=== PATIENT | male | born 1945 | race Hispanic/Latino ===

== ENCOUNTER 2019-09-03 07:42 | Outpatient (CLI) | payer OTHER, MEDICARE, SELFPAY ==
--- NOTE | 2019-09-03 07:48 | ECG_ITS ---
Measurements Intervals [place] Rate: 62 P: 58 NE: 230 QRS: -47 QRSD: 142 T: -21 QT: 418 QTc: 426 Interpretive Statements SINUS RHYTHM WITH FIRST DEGREE AV BLOCK RIGHT BUNDLE BRANCH BLOCK LEFT ANTERIOR FASCICULAR BLOCK VOLTAGE CRITERIA FOR LVH BASELINE ARTIFACT- I, II, III, AVR, AVL, AVF, V4-V6 ABNORMAL ECG Electronically Signed On 09-03-2019 8:30:37 CDT by Guicho Piña D.O.
[2019-09-03 08:27] LABS: Blood Urea Nitrogen 21 mg/dL (9-20); Calcium 9.4 mg/dL (8.4-10.2); Carbon Dioxide 27 mmol/L (22-30); Chloride 103 mmol/L (98-107); Estimated Glomerular Filt Rate > 60; Glucose 195 mg/dL (75-110); Potassium 4.1 mmol/L (3.4-5.0); Sodium 137 mmol/L (137-145)
== END 2019-09-03 07:43 | disposition home or self-care (01) ==
PROVIDERS: Anesthesiology; PCP Family Medicine; Visit Provider Surgery
DX: I10 Essential (primary) hypertension (principal); E78.5 Hyperlipidemia, unspecified; E11.9 Type 2 diabetes mellitus without complications; I45.10 Unspecified right bundle-branch block; I44.4 Left anterior fascicular block
CPT/HCPCS: 36415; 80048; 93005

== ENCOUNTER 2019-09-07 00:23 | Outpatient (CLI) | payer OTHER, MEDICARE, SELFPAY ==
[2019-09-07 17:00] LABS: SARS-CoV-2 RNA PCR Negative
== END 2019-09-07 00:24 | disposition home or self-care (01) ==
LOC: ANHCOVIDDT 00:23
PROVIDERS: PCP Family Medicine; Visit Provider Surgery
DX: Z20.828 Contact with and (suspected) exposure to other viral communicable diseases (principal); Z01.812 Encounter for preprocedural laboratory examination
CPT/HCPCS: 87635; C9803; U0003

== ENCOUNTER 2019-09-09 00:18 | Day surgery (SDC) | payer OTHER, MEDICARE, SELFPAY ==
[2019-06-04 10:50] VITALS: BMI 35.6
--- NOTE | 2019-09-08 07:45 | PM.SD ---
Same Day Admit/Disch: HPI History of Present Illness Chief complaint: umbilical hernia Narrative: Demond Graham is a 74 year old male Who presented in April with a 1 month history of an umbilical bulge. Patient has a history of hand access laparoscopic right colectomy in 2013. This incision is okay although he does have a diastasis. He was found to have a reducible umbilical hernia which is occasionally painful for him. He is taken to surgery now for repair of the umbilical hernia with mesh. [facility] Past Medical History Medical History Arthritis Diabetes mellitus High cholesterol Hyperlipemia Hypertension Osteoarthritis Surgical History Surgical History History of right hemicolectomy History of surgery of head History of tonsillectomy Family History Family History Sibling Hypertension Mother Family history of kidney disease Family history of type 2 diabetes mellitus Social History Social History Smoking status: Former smoker Tobacco type: cigarettes Alcohol intake: current Substance use: never Gender identity (if verbalized by the patient): Male Same Day Admit/Disch: Med Pre-admit Medications Home Medications Medication Instructions Recorded Confirmed Type aspirin 81 mg tablet,delayed 81 mg PO DAILY 04/21/19 09/09/19 History release atorvastatin 10 mg tablet 10 mg PO QPM 04/21/19 09/09/19 History finasteride 5 mg tablet 5 mg PO QPM 04/21/19 09/09/19 History glipizide 5 mg tablet, extended 5 mg PO DAILY 04/21/19 09/09/19 History release 24 hr hydrochlorothiazide 12.5 mg capsule 12.5 mg PO DAILY 04/21/19 09/09/19 History losartan 100 mg tablet 100 mg PO DAILY 04/21/19 09/09/19 History metformin 1,000 mg tablet 1,000 mg PO BID 04/21/19 09/09/19 History pantoprazole 40 mg tablet,delayed 40 mg PO QAM 04/21/19 09/09/19 History release tamsulosin 0.4 mg capsule 0.4 mg PO QPM 04/21/19 09/09/19 History hydrocodone-acetaminophen 1 - 2 tablet PO Q6H PRN #7 tablet 09/09/19 Rx ibuprofen 600 mg PO Q6H PRN #14 tablet 09/09/19 Rx Exam Const: General: comfortable, no acute distress, alert and awake HENMT: Head: normocephalic and atraumatic Mouth: Yes Normal oral and palatal mucosa present Eyes: Conjunctivae: conjunctivae normal Pupils: Equal, round and reactive pupils present EOM: EOMs intact bilaterally Neck: Neck: normal visual inspection, no lymphadenopathy and nontender Resp: Effort & Inspection: normal respiratory effort Auscultation: clear to auscultation bilaterally Cardio: Rate: regular rate Rhythm: regular rhythm Heart sounds: no gallops, no murmurs and no rubs GI: Inspection: non-distended, obesity, scar ( upper midline from hand port) and other ( diastasis) GI Palp: Yes Soft to palpation, No Tenderness to palpation present (GI), No Hepatomegaly present, No Splenomegaly present, Yes Hernia present ( reducible umbilical hernia, nontender) and No Palpable mass present Auscultation: normal bowel sounds Skin: Lesions: no lesions Rashes: no rashes Neuro: General: no focal motor deficits and CN's II-XI intact bilaterally Cranial nerves: Yes Equal, round and reactive pupils present, Yes Bilaterally intact EOM present, Yes facial symmetry and Yes Midline tongue present Speech: normal speech Motor exam (neuro): 5/5 motor strength present throughout and Motor abnormalities not present Extrem: General: no clubbing, cyanosis or edema and edema Psych: Affect: normal affect Thought process: Normal thought process present Insight: Good insight present (Psych) DS: Summary Time Spent with Patient Time attestation: Total time spent providing and/or coordinating discharge services: DS: Admitting Diagnosis Admitting Diagnosis Admitting Diagnosis: umbilical hernia
[2019-09-09] VITALS (9 sets, daily range): BP systolic 117–135; BP diastolic 60–82; PULSE 77–98; RESP 12–18; TEMP 36.4; O2SAT 93–100
--- NOTE | 2019-09-09 06:58 | WPDHPUPDATE1 ---
History and Physical Update Update Date/Time: 09/09/19 06:58 History and Physical has been reviewed, including an updated exam of the patient. There are NO changes in the patient's condition. Risks, benefits, and alternatives have been discussed and questions answered. Patient agrees to proceed with procedure.
[2019-09-09] MEDS: LACTATED RINGERS 1,000 ML 30 ML IV CONT ×2 (07:45→11:52)
[2019-09-09 07:46] LABS: Glucose Point of Care 139 (65-105)
--- NOTE | 2019-09-09 08:08 | WPDANESEPPF ---
Anes - Initial Pre Proc Eval Procedure: Operation Date: 09/09/19 09:00 Proposed Procedures p Repair Umbilical Hernia with Mesh - Arnulfo Perry MD Date/Time: 09/09/19 08:08 Surgeon: Arnulfo Perry MD Pre Op Diagnosis: umbilical hernia Patient Data Age: 74 Gender: M Height: 1.85 m Weight: 119.2 kg Allergies Allergy/AdvReac Type Severity Reaction Status Date / Time tetracycline Allergy Unknown rash Verified 09/09/19 07:51 Home Medications Medication Instructions Recorded Confirmed Type aspirin 81 mg tablet,delayed 81 mg PO DAILY 04/21/19 09/09/19 History release atorvastatin 10 mg tablet 10 mg PO QPM 04/21/19 09/09/19 History finasteride 5 mg tablet 5 mg PO QPM 04/21/19 09/09/19 History glipizide 5 mg tablet, extended 5 mg PO DAILY 04/21/19 09/09/19 History release 24 hr hydrochlorothiazide 12.5 mg capsule 12.5 mg PO DAILY 04/21/19 09/09/19 History losartan 100 mg tablet 100 mg PO DAILY 04/21/19 09/09/19 History metformin 1,000 mg tablet 1,000 mg PO BID 04/21/19 09/09/19 History pantoprazole 40 mg tablet,delayed 40 mg PO QAM 04/21/19 09/09/19 History release tamsulosin 0.4 mg capsule 0.4 mg PO QPM 04/21/19 09/09/19 History Laboratory Tests 09/09/19 07:43 POC Capillary Glucose 139 mg/dl H mg/dl (65-105) Patient hx anesthesia problems: none Family hx anesthesia problems: none PMFSH Past Medical History Medical History Arthritis Diabetes mellitus High cholesterol Hyperlipemia Hypertension Osteoarthritis Surgical History Surgical History History of right hemicolectomy History of surgery of head History of tonsillectomy Family History Family History Sibling Hypertension Mother Family history of kidney disease Family history of type 2 diabetes mellitus Social History Social History Smoking status: Former smoker Tobacco type: cigarettes Alcohol intake: current Substance use: never Gender identity (if verbalized by the patient): Male Anes - Eval Final PreProcedure Day of Procedure 09/09/19 08:08 Patient weight: obese Heart: regular rate and rhythm Lungs: clear to auscultation and normal air movement Airway: Mallampati scale Neurological: alert and oriented Last oral intake: >/= 8 hours ASA classification: III Emergent: no Anesthetic plan: proceed Anesthesia type and monitoring: general ETT and standard monitoring Informed Consent: The patient's anesthetic plan and its attendant risks and benefits were discussed with the patient/family/POA. Questions were solicited and answers provided to the satisfaction of the patient/family/POA.
--- NOTE | 2019-09-09 09:38 | SUR.PREOP ---
FAMILY NOTIFIED OF DELAY W/SURGEON/ACKNOWLEDGES UNDERSTANDING
[2019-09-09] MEDS: ceFAZolin 2 GM/D5W 50 ML 2 GM/50 ML BAG IVPB (10:34)
--- NOTE | 2019-09-09 10:37 | PM.PROC ---
Procedure Note - Detailed Date of procedure: 09/09/19 Pre-op diagnosis: umbilical hernia Umbilical hernia Post-op diagnosis: other (Umbilical and ventral hernias) Procedure performed: Ventral hernia repair with 4.6 cm Parietex underlay mesh Description of procedure: Patient was taken to the operating room and IV sedation was administered. Prep and drape was carried out. The proposed incision along the upper margin of the umbilicus was marked on the skin. Local anesthetic was infiltrated into the skin and the deeper subcutaneous tissues. Incision was made and dissection was carried down through the skin and to the hernia sac. The sac was then dissected free from the umbilical skin and the surrounding subcutaneous tissues. It was dissected down to its neck. Additional local anesthetic was infiltrated into the neck and the fascia surrounding the neck of the hernia sac. The sac was then amputated at its neck. The subcutaneous was undermined around the hernia defect. While dissecting the subcutaneous from around the edges of the hernia defect, it was evident that there was a small ventral hernia just cephalad to the umbilical hernia. I removed the chronically incarcerated properitoneal fat from this ventral hernia and exposed it as well as the umbilical hernia. Additional local was infiltrated around the fascia. I placed a finger inside the umbilical hernia defect and checked for any abdominal wall adhesions in the area. None were found. Ventral hernia defect was too small to place a finger within. A 4.6 cm Parietex tyonek was chosen. It was folded and placed in the defect. Once it symmetrically covered the umbilical defect with overlap of the ventral hernia, I placed cranial and caudal transfascial sutures of 0 Ethibond. These sutures were placed in such a fashion that, when tied, they would advance the edges of the umbilical hernia defect towards 1 another. These sutures were tied and had the desired effect. I then closed the hernia defect with [id number] mattress sutures of 0 Ethibond. I placed an additional 0 Ethibond suture to close the ventral hernia defect incorporating a bit of mesh in this suture as well. The repair looked quite satisfactory. I then infiltrated additional local all around the areas of the repair. The umbilical skin was tacked to the fascia with 3 0 Vicryl suture. The subcutaneous was closed with 3 0 Vicryl. Subcuticular interrupted 4 O Vicryl skin stitches were placed. The skin was then closed with running 4 0 Monocryl subcuticular suture. Wound was dressed with Exofin surgical adhesive. The patient was awakened and taken to recovery in good condition. Counts were correct x2. Implants: 4.6 cm Parietex hernia mesh Anesthesia: GLMA and local (0.5% Marcaine with Exparel) Surgeon: Arnulfo Perry MD Security Software Engineer: Scott SKINNER Estimated blood loss (mL): 5 Drains: No Packing: No Pathology: none sent Complications: None Condition: stable Disposition: same day Findings: 1 cm umbilical defect and 0.7 cm ventral hernia defect just above the umbilical hernia. Mesh covered both hernias.
--- NOTE | 2019-09-09 10:37 | SUR.PREOP ---
family notified of pt transfer to surgical suite
[2019-09-09 12:09] LABS: Glucose Point of Care 138 (65-105)
== END 2019-09-09 13:37 | disposition home or self-care (01) ==
PROVIDERS: PCP Family Medicine; Visit Provider Surgery
PROC: (CPT 49585; principal; 2019-09-09 09:00)
DX: K42.9 Umbilical hernia without obstruction or gangrene (principal); I10 Essential (primary) hypertension; M19.90 Unspecified osteoarthritis, unspecified site; N40.0 Benign prostatic hyperplasia without lower urinary tract symptoms; Z90.49 Acquired absence of other specified parts of digestive tract; Z87.891 Personal history of nicotine dependence; Z79.82 Long term (current) use of aspirin; Z79.84 Long term (current) use of oral hypoglycemic drugs; E66.9 Obesity, unspecified; Z68.34 Body mass index [BMI] 34.0-34.9, adult
CPT/HCPCS: 49585; 36415; 80048; 93005; C1781; C9290; J0330; J0690; J1100; J2250; J2405; J2704; J3010; J7120

== ENCOUNTER 2022-10-30 08:30 | Outpatient (RCR) | payer MEDICARE, SELFPAY ==
--- NOTE | 2022-10-30 08:34 | PTOPEVAL1 ---
Assessment and note entered by Brittnee Rosado, PT Evaluation Information Assessment Status Evaluation Diagnosis Sciatica Onset 10/30/22 Subjective Information Demond Graham reports he has a history of lower back pain that will come and go. He started having lower back pain about 2 weeks ago and then started having left leg pain as well. He notes the leg pain only occurs when he is sitting in his recliner. He also has some difficulty with long car rides. He feels he needs to learn some exercises to help his back pain. Reported Pain Level Pain Score 5,8: Self Report Assessment PT Clinical Summary Demond Graham presents with intermittent lower back and left LE pain. He has difficulty with sitting and driving. He objectively demonstrates decreased lumbar AROM, decreased hamstring and piriformis flexibility, decreased core strength, and reproduction of pain with left lumbar quadrant testing. He will benefit from skilled PT to address these limitations. Plan of Care Interventions Electrical Stimulation,Hot Pack/Cold Pack,Manual Therapy,Neuro Re-education,Patient/Caregiver Educati,Therapeutic Activities,Therapeutic Exercise PT Services Indicated Yes Treatment Frequency and 2 times a week for 8 visits Duration These treatments will address the objective and functional deficits as defined above. The patient will be advanced safely and appropriately in order for the patient to progress towards his/her prior level of function. Additional exercises will be introduced and as well as a comprehensive home exercise program upon discharge, if needed, ?to ensure carryover of functional gains achieved in the clinic. This treatment plan has been reviewed and agreement upon by the patient.
--- NOTE | 2022-10-30 08:34 | OPREHPOC ---
Outpatient Therapy Plan of Care This is a Multidisciplinary Plan of Care that may contain components documented by all disciplines (PT, OT, and ST.) PT Problem 1 PT Problem #1 Knowledge Deficit PT Goal 1 Goal The patient will be independent in a home exercise program to continue after discharge from formal PT. Target Visit 8 PT Problem 2 PT Problem #2 Pain PT Goal 1 Goal The patient will report no greater than 3/10 pain in the lower back and left LE with ADLs. Target Visit 8 PT Problem 3 PT Problem #3 Impaired Strength PT Goal 1 Goal The patient will demonstrate at least 4/5 abdominal and lumbar parapspinal strength to support the spine for ADLs. Target Visit 8 PT Problem 4 PT Problem #4 Impaired Flexibility PT Goal 1 Goal The patient will demonstrate improved flexibility in the hamstrings by 10 degrees. Target Visit 8
--- NOTE | 2023-01-03 13:21 | PTOPDC ---
Assessment and note entered by Brittnee Rosado, PT Evaluation Information Assessment Status Discharge - Pt Not Presen Diagnosis Sciatica Onset 10/30/22 Subjective Information Pt not present. Assessment PT Clinical Summary Demond Graham attended 3 skilled PT sessions then stopped showing up. He is discharged. Plan of Care PT Services Indicated Yes
== END 2022-11-13 15:55 | disposition home or self-care (01) ==
LOC: CHSPT 08:30
PROVIDERS: Visit Provider Family Medicine
DX: M54.30 Sciatica, unspecified side (principal)
CPT/HCPCS: 97014; 97110; 97112; 97161; G0283

== ENCOUNTER 2023-01-04 12:39 | Outpatient (CLI) | payer MEDICARE, SELFPAY | END 2023-01-04 12:40 | disposition home or self-care (01) | LOC: ANHAUDASC 12:40 | PROVIDERS: Visit Provider Otolaryngology | DX: H90.41 Sensorineural hearing loss, unilateral, right ear, with unrestricted hearing on the contralateral side (principal) | CPT/HCPCS: 92557; 92567 ==

== ENCOUNTER 2024-04-14 08:00 | Outpatient (CLI) | payer MEDICARE, SELFPAY ==
--- NOTE | ~2024-04-14 | CT_ITS ---
EXAMINATION: CT IAC/mastoids BI wo con DATE: 04/14/2024 08:31 INDICATION: Unspecified disorder of left middle ear and mastoid. TECHNIQUE: Computed tomography (CT) of the temporal bones was performed without intravenous contrast. Automated exposure control and iterative reconstruction technique were employed. The dose-length pro duct was 763.16 mGy-cm. COMPARISON: Head CT 07/30/2015 FINDINGS: RIGHT TEMPORAL BONE: The internal auditory canal, cochlea, vestibule, semicircular canals, vestibular aqueduct, carotid ca nal, jugular bulb, facial nerve course, ossicles, tympanic membrane, Prussak space, scutum, and exter nal auditory canal are normal. There is a trace right mastoid effusion. LEFT TEMPORAL BONE: The internal auditory canal, cochlea, vestibule, semicircular canals, vestibular aqueduct, carotid ca nal, and jugular bulb are normal. There is near complete opacification of the tympanic cavity (includ ing Prussak space) and complete opacification of the mastoid air cells. The mastoid air cells are hyp oplastic. There are erosions of the ossicles, burns of the tympanic cavity, and mastoid septa. There is a small volume of cerumen in external auditory canal. IMPRESSION: 1. Near complete opacification of the left tympanic cavity including complete opacification of the le ft mastoid air cells with erosions of bone, consistent with chronic otitis media versus cholesteatoma . Reviewed, dictated and finalized at location B. CUTTING MACHINE OPERATOR IMPRESSION: 1. Near complete opacification of the left tympanic cavity including complete o pacification of the left mastoid air cells with erosions of bone, consistent wi th chronic otitis media versus cholesteatoma.
== END 2024-04-14 08:01 | disposition home or self-care (01) ==
LOC: GOSHIMG 08:01
PROVIDERS: Visit Provider Otolaryngology
DX: H74.92 Unspecified disorder of left middle ear and mastoid (principal); H90.6 Mixed conductive and sensorineural hearing loss, bilateral
CPT/HCPCS: 70480

== ENCOUNTER 2024-07-28 15:05 | Outpatient (CLI) | payer MEDICARE, SELFPAY ==
--- OUTSIDE RECORDS SUMMARY | 2024-07-28 15:16 | XMS_ITS | Clinical Summary ---
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 Gender Identity Not on file Sexual Orientation Not on file Last Filed Vital Signs Vital Sign Reading Time Taken Comments Blood Pressure 128/68 07/28/2015 11:08 AM CDT Pulse - - Temperature - - Respiratory Rate - - Oxygen Saturation - - Inhaled Oxygen Concentration - - Weight - - Height - - Body Mass Index - - Plan of Treatment Health Maintenance Due Date Last Done Comments DTaP, Tdap and Td Vaccines ( 1 - Tdap) 02/26/1963 Pneumococcal Vaccine: 50+ Ye ars (1 of 1 - PCV) 02/26/1994 Zoster Vaccines (1 of 2) 02/26/1994 RSV Immunization or 60+ Years (1 - 1-dose 75+ series) 02/26/2019 COVID-19 Vaccine ( - 2023-2 5 season) 2023 Meningococcal B Vaccine Aged Out No l onger eligible based on patient's age to complete this topic Meningococcal Vaccine Aged Out No edmundo theron eligible based on patient's age to complete this topic RSV Immunizations Under 20 Months Aged Out No longer eligible based on patient's age to complete this topic
--- OUTSIDE RECORDS SUMMARY | 2024-07-28 15:16 | XMS_ITS | Clinical Summary ---
Author Organization [facility] Facility Address [address] [place] [id number] Care Team Providers Care Phlebotomist Supervisor/Instructor Name Role Phone Matthew Montana MD Primary Care Provider [phone] Allergies Active Allergy Reactions Criticality Noted Date Comments Tetracycline Other (see comments) 05/28/2022 Medications ASPIRIN 81 PO daily Active atorvastatin (LIPITOR) 10 MG tablet 04/10/2022 Active finasteride (PROSCAR) 5 MG tablet 04/10/2022 Active hydroCHLOROthiaz ancelmo 25 MG tablet daily Act fátima LORazepam (ATIVAN) 2 MG tablet daily Active metFORMIN (GLUCOPHAGE) 1000 MG tablet 04/10/2022 Acti ve losartan (COZAAR) 100 MG tablet 04/10/2022 Active pantoprazole (PROTONIX) 40 MG EC tablet Take 40 mg by mouth in the morning. Active tamsulosin (FLOMAX) 0.4 MG 24 hr capsule nightly. Active Fluticasone Propionate, Inhal, 50 MCG/ACT aerosol powder Inhale Active methocarbamol (ROBAXIN) 500 MG tablet Take 500 mg by mouth 4 (four) times a day if needed Active terbinafine (LamISIL) 250 MG tablet Take 250 mg by mouth 1 (one) time each day Active gabapentin (NEURONTIN) 100 MG capsule Take 100 mg by mouth every night Active Tirzepatide (Mounjaro) 2.5 MG/0.5ML solution pen-injector Inject 2.5 mg under the skin per week Active Active Problems No known active problems Family History Medical History Relation Comments Pneumonia Father Kidney disease Mother Relation Status Comments Brother Father Mother Social History Tobacco Use Types Packs/Day Years Used Date Smoking Tobacco: Former Cigarettes Q uit: 1993 Tobacco Cessation:Counseling Given: Not Answered Alcohol Use Standard Drinks/Week Comments Yes 0 (1 standard drink = 0.6 oz pur e alcohol) Rarely Sex and Gender Information Value Date Recorded Sex Assigned at Not on file Legal Sex Male 11:42 AM EST Gender Identity Not on file Sexual Orientation Not on file Last Filed Vital Signs Vital Sign Reading Time Taken Comments Blood Pressure 131/81 06/25/2022 11:00 AM CDT Pulse 76 06/25/2022 11:00 AM CDT Temperature 37 C (98.6 F) 06/25/2022 11:00 AM CDT Respiratory Rate - - Oxygen Saturation 96% 06/25/2022 11:00 AM CDT Inhaled Oxygen Concentration - - Weight 123 kg (272 lb) 06/25/2022 11:00 AM CDT Height 185.4 cm (6' 1 ) 06/25/2022 11:00 AM CDT Body Mass Index 35.89 06/25/2022 11:00 AM CDT Plan of Treatment Upcoming Encounters Date Type Department Care Team (Late st Contact Info) Description 08/13/2024 10:00 AM CDT Office Visit [facility] [address] [facility] [address] [place] [address] Duran Torres MD [address] [facility] [address] [place] [address] Health Maintenance Due Date Last Done Comments Pneumococcal Vaccine: 50+ Ye ars (1 of 2 - PCV) 02/26/1964 Hepatitis B Vaccine (1 of 3 - Risk 3-dose series) 2004 Diabetes: Ophthalmology Exam 06/25/2022 Diabetes: Pedal Pulse Checked 06/25/2022 Diabetes: Sensory Foot Exam 06/25/2022 Diabetes: Visual Foot Exam 06/25/2022 Diabetes: Hemoglobin A1C 10/29/2023 024, 07/23/2023, 01/18/2023, Additional history exists Influenza Vaccine (Season Ended) 2024 Procedures Procedure Name Priority Date/Time Associated Diagnosis Comments HEMOGLOBIN A1C Routine 07/29/2023 7:19 PM CDT Type 2 diabetes mellitus with diabetic chronic kidney disease (HCC) from Last 3 Months or Most Recently Relevant to Health Maintenance Results * Hemoglobin A1c (07/29/2023 7:19 PM CDT) Blood (Blood, Venous) us Duran Torres MD LAB BLOOD ORDERABLES Final Res ult PRINT/EXTERNAL (NON-INTERFACED LABS) from Last 3 Months or Most Recently Relevant to Health Maintenance Insurance Medicare [facility] Care Teams Phlebotomist Supervisor/Instructor Relationship Specialty Start Date End Date Matthew Montana MD [address] [place] [id number] PCP - General Family Medicine 05/28/22
--- OUTSIDE RECORDS SUMMARY | 2024-07-28 15:16 | XMS_ITS | Clinical Summary ---
Author Organization [facility] Address [address] [address] Phone Care Team Providers Care Public Policy Manager Name Role Phone Karina Bonds APRN, CNP Primary Care Provider Allergies Active Allergy Reactions Criticality Noted Date Comments Tetracycline Rash,Unknown Medications acetaminophen (TYLENOL ARTHRITIS PAIN) 650 MG Tablet Controlled Release as needed. Active atorvastatin (LIPITOR) 10 MG Tablet Take 10 mg by mouth nightly. Active LORazepam (ATIVAN) 2 MG Tablet Take 1 mg by mouth daily as needed. Active sitaGLIPtin (JANUVIA) 100 MG Tablet daily. Active hydrochlorothia zide 25 MG Tablet daily. Active metFORMIN (GLUCOPHAGE) 1000 MG Tablet Take 1,000 mg by mouth 2 times daily (with meals). Active tamsulosin (FLOMAX) 0.4 MG Capsule nightly. Active Aspirin 81 MG Tablet daily. Active finasteride (PROSCAR) 5 MG Tablet Take 5 mg by mouth daily. Active glipiZIDE (GLUCOTROL) 5 MG Tablet Take 5 mg by mouth daily. Active pantoprazole (PROTONIX) 40 MG Tablet Delayed Response Take 40 mg by mouth daily. Active losartan (COZAAR) 100 MG Tablet Take 100 mg by mouth daily. Active Tirzepatide 5 MG/0.5ML Solution Auto-injector 5 mg by Subcutaneous route once a week. Mounjaro Takes on Tuesdays Active Cetirizine HCl (ZYRTEC PO) Take by mouth as needed. Active Active Problems Problem Noted Date Diagnosed Date Colitis Rectal bleeding Colon polyps Acute hepatitis C virus Family History Medical History Relation Name Comments pneumonia Father Kidney Disease Mother Relation Name Status Comments Father Mother Social History Tobacco Use Types Packs/Day Years Used Date Smoking Tobacco: Former Cigarettes 1 10 0 08/13/1988 - 08/13/1998 Smokeless Tobacco: Never Tobacco Cessation:Counseling Given: Not Answered Comments:quit 30 yr ago Alcohol Use Standard Drinks/Week Comments Yes 2 (1 standard drink = 0.6 oz pur e alcohol) one beer a week AUDIT-C Answer Date Recorded Frequency of Alcohol Consumption Not on file 08/13/2018 Average Number of Drinks 1 or 2 019 Frequency of Binge Drinking Not on file 07/24 Sex and Gender Information Value Date Recorded Sex Assigned at Not on file Legal Sex Male 11:30 PM CDT Gender Identity Not on file Sexual Orientation Not on file 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 Not on file Not on file Not on file Last Filed Vital Signs Vital Sign Reading Time Taken Comments Blood Pressure 114/65 03/23/2024 8:34 AM MOLD CAPPER Pulse 63 03/23/2024 8:34 AM MOLD CAPPER Temperature 36 C (96.8 F) 03/23/2024 8:34 AM MOLD CAPPER Respiratory Rate 18 03/23/2024 8:34 AM MOLD CAPPER Oxygen Saturation 96% 03/23/2024 8:34 AM MOLD CAPPER Inhaled Oxygen Concentration - - Weight 106.6 kg (235 lb) 03/10/2024 11:00 AM MOLD CAPPER Height 185.4 cm (6' 1 ) 03/10/2024 11:00 AM MOLD CAPPER Body Mass Index 31 03/10/2024 11:00 AM MOLD CAPPER Plan of Treatment Health Maintenance Due Date Last Done Comments TdaP Immunization 1945 Pneumococcal Immunization (50+ years) (1 of 1 - PCV) 02/26/1994 Zoster Immunization (1 of 2) 02/26/1994 Respiratory Syncytial Virus (RSV) Immunization (Adult) (1 - 1-dose 75+ series) 02/26/2019 Influenza Immunization (#1) 2023 11/0 11/2016, 01/23/2016, 03/02/2015, Additional history exists SARS-COV-2 Immunization ( season) 2023 01/23/2021, 06/14/2020, 05/04/2020 Colonoscopy High Risk Discontinued 03/23/2024 , 12/03/2018, 09/24/2013 Colonoscopy Discontinued 03/23/2024, 11/23, 09/24/2013 Colorectal Cancer Screening Discontinued Cologuard Discontinued Hepatitis B Immunization Aged Out No longer eligible based on patient's age to complete this topic Immunochemical Fecal Occult Blood Discontinued Meningococcal Immunization (ACWY) Aged Out No longer eligible based on patient's age to complete this topic Rotavirus Immunization Aged Out No lo nger eligible based on patient's age to complete this topic Procedures Procedure Name Priority Date/Time Associated Diagnosis Comments COLONOSCOPY Routine 12/03/2018 from Last 3 Months or Most Recently Relevant to Health Maintenance Results * COLONOSCOPY (12/03/2018) Fco Davis DO PROCEDURE/MINOR SURGICAL ORDERA BLES Final Result from Last 3 Months or Most Recently Relevant to Health Maintenance Insurance MEDICARE [facility] Care Teams Public Policy Manager Relationship Specialty Start Date End Date Karina Bonds APRN, [place] [address] [place] [address] PCP - General Advanced Practice Nurse 03/23/24
[2024-07-28 16:29] LABS: Albumin Level 3.7 g/dL (3.4-5.0); Anion Gap 7 mmol/L (4-12); Blood Urea Nitrogen 16 mg/dL (7-18); Carbon Dioxide 30 mmol/L (21-32); Chloride 102 mmol/L (98-108); Estimated Glomerular Filt Rate 51; Glucose 152 mg/dL (70-99); Osmolality Calculated 292 mOsm/kg (285-295); Phosphorus 2.6 mg/dL (2.6-4.7); Potassium 3.9 mmol/L (3.5-5.1); Sodium 139 mmol/L (136-145)
[2024-07-28 17:30] LABS: Basophils Absolute Auto 0.03 K/mm3 (0.00-0.10); Basophils Percent Auto 0.4 % (0.0-1.0); Eosinophils Absolute Auto 0.23 K/mm3 (0.02-0.50); Eosinophils Percent Auto 3.2 % (1.0-6.0); Hematocrit 48.3 % (37.0-46.0); Hemoglobin 15.6 g/dL (12.4-15.3); Immature Granulocyte Absolute 0.03 K/mm3 (0.00-0.00); Immature Granulocyte Percent A 0.4 % (0.0-0.0); Lymphocytes Absolute Auto 2.03 K/mm3 (1.10-4.50); Lymphocytes Percent Auto 28.1 % (18.0-42.0); Mean Corpuscular HGB Conc 32.3 g/dL (32-36); Mean Corpuscular Hemoglobin 29.1 pg (27.0-31.0); Mean Corpuscular Volume 89.9 fL (78.0-102.0); Mean Platelet Volume 10.8 fl (8.7-11.0); Monocytes Absolute Auto 0.84 K/mm3 (0.10-0.90); Monocytes Percent Auto 11.6 % (2.0-11.0); Neutrophils Absolute Auto 4.07 K/mm3 (1.70-7.20); Neutrophils Percent Auto 56.3 % (50.0-70.0); Platelet Count Result 200 K/mm3 (150-420); Red Blood Count 5.37 M/mm3 (4.70-6.10); Red Cell Distribution Width 14.6 % (11.6-14.4); White Blood Count 7.2 K/mm3 (4.8-10.8)
== END 2024-07-28 15:06 | disposition home or self-care (01) ==
LOC: CHSLAB 15:08
PROVIDERS: PCP Nurse Practitioner Family; Visit Provider Internal Medicine Nephrology
DX: N18.31 Chronic kidney disease, stage 3a (principal); I10 Essential (primary) hypertension; E11.21 Type 2 diabetes mellitus with diabetic nephropathy; I12.9 Hypertensive chronic kidney disease with stage 1 through stage 4 chronic kidney disease, or unspecified chronic kidney disease; E11.22 Type 2 diabetes mellitus with diabetic chronic kidney disease
CPT/HCPCS: 36415; 80069; 83036; 85025

== ENCOUNTER 2024-07-30 07:15 | Outpatient (CLI) | payer MEDICARE, SELFPAY ==
--- OUTSIDE RECORDS SUMMARY | 2024-07-30 07:20 | XMS_ITS | Clinical Summary ---
Author Organization [facility] Facility Address [address] [place] [address] Care Team Providers Care Director Child Abuse Therapy Name Role Phone Matthew Montana MD Primary Care Provider [phone] Allergies Active Allergy Reactions Criticality Noted Date [...] Description 08/13/2024 10:00 AM CDT Office Visit [facility] [address] [place] [address] Duran Torres MD [address] [place] [address] Health Maintenance Due Date Last Done Comments [...] Recently Relevant to Health Maintenance Insurance Medicare [facility] Care Teams Director Child Abuse Therapy Relationship Specialty Start Date End Date Matthew Montana MD [address] [place] [address] PCP - General Family Medicine 05/28/22
[2024-07-30 07:26] LABS: Collection Time Urine 24 HOURS
[2024-07-30 08:08] LABS: Creatinine Urine 98.47 mg/dL (40-278); Patient Weight 235 Lbs; Serum Creat 1.34
[2024-07-30 08:37] LABS: Total Volume 24 Hour Urine 1950 ml
== END 2024-07-30 07:16 | disposition home or self-care (01) ==
LOC: CHSLAB 07:17
PROVIDERS: PCP Nurse Practitioner Family; Visit Provider Internal Medicine Nephrology
DX: N18.31 Chronic kidney disease, stage 3a (principal); E11.22 Type 2 diabetes mellitus with diabetic chronic kidney disease; E11.21 Type 2 diabetes mellitus with diabetic nephropathy; I12.9 Hypertensive chronic kidney disease with stage 1 through stage 4 chronic kidney disease, or unspecified chronic kidney disease
CPT/HCPCS: 82575

== ENCOUNTER 2024-08-11 15:07 | Outpatient (CLI) | payer MEDICARE, SELFPAY ==
--- OUTSIDE RECORDS SUMMARY | 2024-08-11 15:14 | XMS_ITS | Clinical Summary ---
Author Organization [facility] Address [address] [address] Phone Care Team Providers Care Alarm Operator Name Role Phone Karina Bonds APRN, CNP [...] Comments Blood Pressure 114/65 03/23/2024 8:34 AM ASP NET DEVELOPER Pulse 63 03/23/2024 8:34 AM ASP NET DEVELOPER Temperature 36 C (96.8 F) 03/23/2024 8:34 AM ASP NET DEVELOPER Respiratory Rate 18 03/23/2024 8:34 AM ASP NET DEVELOPER Oxygen Saturation 96% 03/23/2024 8:34 AM ASP NET DEVELOPER Inhaled Oxygen Concentration - - Weight 106.6 kg (235 lb) 03/10/2024 11:00 AM ASP NET DEVELOPER Height 185.4 cm (6' 1 ) 03/10/2024 11:00 AM ASP NET DEVELOPER Body Mass Index 31 03/10/2024 11:00 AM ASP NET DEVELOPER Plan of Treatment Health Maintenance Due Date [...] Recently Relevant to Health Maintenance Insurance MEDICARE [facility] Care Teams Alarm Operator Relationship Specialty Start Date End Date Karina Bonds APRN, [address] [address] [place] [address] PCP - General Advanced Practice Nurse 03/23/24
--- OUTSIDE RECORDS SUMMARY | 2024-08-11 15:14 | XMS_ITS | Clinical Summary ---
Author Organization [facility] [employer] [facility] Facility Address [address] [place] [address] Care Team Providers Care Training And Development Professional Name Role Phone Matthew Montana MD Primary Care Provider [phone] Allergies Active Allergy Reactions Criticality Noted Date Comments Tetracycline Other (see comments) 05/28/2022 Medications atorvastatin (LIPITOR) 10 MG tablet 3 Active finasteride (PROSCAR) 5 MG tablet 3 Active hydroCHLOROthia zide 25 MG tablet daily Active LORazepam (ATIVAN) 2 MG tablet in the morning. PRN. Active metFORMIN (GLUCOPHAGE) 1000 MG tablet Take 1,000 mg by mouth in the morning and 1,000 mg in the evening. Take with meals. 3 Active losartan (COZAAR) 100 MG tablet 3 Active pantoprazole (PROTONIX) 40 MG EC tablet Take 40 mg by mouth in the morning. Active tamsulosin (FLOMAX) 0.4 MG 24 hr capsule nightly. Active gabapentin (NEURONTIN) 100 MG capsule Take 100 mg by mouth in the morning and 100 mg in the evening and 100 mg before bedtime. Active Tirzepatide (Mounjaro) 2.5 MG/0.5ML solution pen-injector Inject 2.5 mg under the skin per week Active ASPIRIN 81 PO daily 08/05/19 25 Discontinu ed(Therapy completed) Fluticasone Propionate, Inhal, 50 MCG/ACT aerosol powder Inhale 08/05/19 25 Discontinu ed(Therapy completed) methocarbamol (ROBAXIN) 500 MG tablet Take 500 mg by mouth 4 (four) times a day if needed 08/05/19 25 Discontinu ed(Therapy completed) terbinafine (LamISIL) 250 MG tablet Take 250 mg by mouth 1 (one) time each day 08/05/19 25 Discontinu ed(Therapy completed) Active Problems No known active problems Encounters Date Type Department Care Team Description 08/05/2024 11:45 AM CDT Office Visit [facility] [address] [place] [address] Duran Torres MD Chronic kidney disease, stage 2 (mild) (Primary Dx); Hypertension; Type 2 diabetes mellitus with diabetic nephropathy (HCC) 08/04/2024 Orders Only [facility] [address] [place] [address] Camille Ruiz MA 08/03/2024 Documentation Only [facility] [address] [place] [address] Duran Torres MD 08/03/2024 Documentation Only [facility] [address] [place] [address] Duran Torres MD from Last 3 Months Family History Medical History Relation Comments Pneumonia [...] Care Team (Late st Contact Info) Description 02/09/2025 11:15 AM RETAIL STORE MANAGER Office Visit [facility] [address] [place] [address] Duran Torres MD [address] [place] [address] Health Maintenance Due Date Last Done Comments [...] Hemoglobin A1c (07/29/2023 7:19 PM CDT) Blood specimen (specimen) Venous blood / Unknown us Duran Torres MD LAB BLOOD ORDERABLES Final Res ult PRINT/EXTERNAL (NON-INTERFACED LABS) from Last 3 Months or Most Recently Relevant to Health Maintenance Insurance Medicare [facility] Care Teams Training And Development Professional Relationship Specialty Start Date End Date Matthew Montana MD [address] [place] [address] PCP - General Family Medicine 05/28/22
[2024-08-11 15:49] LABS: Albumin Level 4.1 g/dL (3.5-5.1); Anion Gap 5 mmol/L (4-12); Blood Urea Nitrogen 13 mg/dL (9-20); Calcium 9.4 mg/dL (8.4-10.2); Carbon Dioxide 30 mmol/L (22-30); Chloride 104 mmol/L (98-107); Estimated Glomerular Filt Rate > 60; Glucose 86 mg/dL (65-110); Osmolality Calculated 287 mOsm/kg (285-295); Phosphorus 3.3 mg/dL (2.5-4.5); Potassium 4.5 mmol/L (3.4-5.0); Sodium 139 mmol/L (137-145)
== END 2024-08-11 15:08 | disposition home or self-care (01) ==
LOC: CHSLAB 15:11
PROVIDERS: PCP Nurse Practitioner Family; Visit Provider Internal Medicine Nephrology
DX: N18.2 Chronic kidney disease, stage 2 (mild) (principal)
CPT/HCPCS: 36415; 80069

== ENCOUNTER 2025-01-23 07:57 | Outpatient (CLI) | payer MEDICARE, SELFPAY ==
[2025-01-23 08:22] LABS: Hematocrit 46.6 % (37.0-46.0); Hemoglobin 15.5 g/dL (12.4-15.3); Immature Granulocyte Percent A 0.4 % (0.0-0.0); Lymphocytes Absolute Auto 1.97 K/mm3 (1.10-4.50); Mean Corpuscular HGB Conc 33.3 g/dL (32-36); Mean Corpuscular Hemoglobin 29.9 pg (27.0-31.0); Mean Corpuscular Volume 90.0 fL (78.0-102.0); Nucleated Red Blood Cells Absolute Auto 0.00 K/mm3 (0.00-0.00); Nucleated Red Blood Cells Perc 0.0 % (0-0.0); Platelet Count Result 189 K/mm3 (150-420); Red Blood Count 5.18 M/mm3 (4.70-6.10); White Blood Count 8.2 K/mm3 (4.8-10.8)
[2025-01-23 08:23] LABS: Add Urine Microscopic? NO; Appearance Urine Clear (Clear); Glucose Urine UA Negative (Negative); Leukocyte Esterase Ur Negative LEU/UL (Negative); Nitrate Urine Negative (Negative); Specific Grav Ur 1.020 (1.010-1.020)
[2025-01-23 08:34] LABS: Total Protein Urine Random < 5 mg/dL; Ur Ttl Prot Creatinine Ratio 0.04 mg/mg (0-0.20)
[2025-01-23 08:37] LABS: Creatinine Clearance Urine 76.0 ml/min (97-137)
[2025-01-23 08:43] LABS: Hemoglobin A1C 5.6 % (<5.7)
[2025-01-23 09:19] LABS: Albumin Level 4.5 g/dL (3.5-5.1); Anion Gap 8 mmol/L (4-12); Blood Urea Nitrogen 26 mg/dL (9-20); Calcium 9.5 mg/dL (8.4-10.2); Carbon Dioxide 27 mmol/L (22-30); Chloride 104 mmol/L (98-107); Estimated Glomerular Filt Rate 44; Glucose 106 mg/dL (65-110); Osmolality Calculated 292 mOsm/kg (285-295); Potassium 4.2 mmol/L (3.4-5.0); Sodium 139 mmol/L (137-145)
[2025-01-23 09:25] LABS: Serum Creat 1.52; Total Volume 24 Hour Urine 2600 ml
== END 2025-01-23 07:58 | disposition home or self-care (01) ==
LOC: CHSLAB 08:00
PROVIDERS: PCP Nurse Practitioner Family; Visit Provider Internal Medicine Nephrology
DX: I12.9 Hypertensive chronic kidney disease with stage 1 through stage 4 chronic kidney disease, or unspecified chronic kidney disease (principal); N18.2 Chronic kidney disease, stage 2 (mild); E11.21 Type 2 diabetes mellitus with diabetic nephropathy
CPT/HCPCS: 36415; 80069; 81003; 82570; 82575; 83036; 84156; 85025

== ENCOUNTER 2025-02-15 08:39 | Outpatient (CLI) | payer MEDICARE, SELFPAY ==
--- NOTE | ~2025-02-15 | US_ITS ---
EXAMINATION: Ultrasound kidneys bilateral: DATE: 02/15/2025. INDICATION: Chronic kidney disease. TECHNIQUE: 4 views of kidneys and bladder including Doppler were obtained. COMPARISON: Ultrasound kidneys dated 08/05/2017. CT dated 08/06/2019. FINDINGS: Kidneys are normal in size measuring the length of 9.5 cm on the right and 12.1 cm on the left. No evidence of hydronephrosis on either side. Focal linear bladder wall thickening the posterior wall of the urinary bladder. Prominent trabecular markings of the bladder. IMPRESSION: 1. No obstructive changes of the kidneys. Normal size kidneys. 2. Probable chronic bladder wall thickening with prominent trabecular markings. Additional linear focal bladder wall thickening is noted in the posterior wall of the bladder. Bladder neoplasm is not ruled out. Further evaluation can be considered with cystoscopy. Reviewed, dictated and finalized at location T. NING DIRECTOR IMPRESSION: 1. No obstructive changes of the kidneys. Normal size kidneys. 2. Probable chronic bladder wall thickening with prominent trabecular markings. Additional linear focal bladder wall thickening is noted in the posterior wall of the bladder. Bladder neoplasm is not ruled out. Further evaluation can be c onsidered with cystoscopy.
[2025-02-15 09:22] LABS: Appearance Urine Clear (Clear); Glucose Urine UA Negative (Negative); Leukocyte Esterase Ur Negative (Negative); Nitrate Urine Negative (Negative); Specific Grav Ur 1.020 (1.010-1.020)
[2025-02-15 09:26] LABS: Add Urine Microscopic? NO
[2025-02-15 09:49] LABS: Albumin Level 4.6 g/dL (3.5-5.1); Anion Gap 10 mmol/L (4-12); Blood Urea Nitrogen 32 mg/dL (9-20); Calcium 9.8 mg/dL (8.4-10.2); Carbon Dioxide 29 mmol/L (22-30); Chloride 101 mmol/L (98-107); Estimated Glomerular Filt Rate 50; Glucose 91 mg/dL (65-110); Osmolality Calculated 296 mOsm/kg (285-295); Potassium 4.8 mmol/L (3.4-5.0); Sodium 140 mmol/L (137-145)
== END 2025-02-15 08:40 | disposition home or self-care (01) ==
PROVIDERS: PCP Nurse Practitioner Family; Visit Provider Internal Medicine Nephrology
DX: N18.32 Chronic kidney disease, stage 3b (principal); N17.9 Acute kidney failure, unspecified; E11.21 Type 2 diabetes mellitus with diabetic nephropathy
CPT/HCPCS: 36415; 76770; 80069; 81003